=== PATIENT | female | born 1960 | race Caucasian/White ===

== ENCOUNTER 2022-05-24 04:34 | Day surgery (SDC) | payer BC, OTHER ==
[2022-05-23 10:05] VITALS: BMI 36.6
[2022-05-24 15:26] VITALS: BP 107/57; PULSE 55; RESP 14
[2022-05-25 07:13] VITALS: TEMP 98
== END 2022-05-24 15:20 | disposition home or self-care (01) ==
LOC: JASU-ENDO 04:34
PROVIDERS: ATTEND Internal Medicine Gastroenterology
PROC: 0DJD8ZZ Inspection of Lower Intestinal Tract, Via Natural or Artificial Opening Endoscopic (ICD-10-PCS; principal; 2022-05-24 12:30)
DX: Z51.11 Encounter for antineoplastic chemotherapy (principal); Z86.010 Personal history of colon polyps